=== PATIENT | female | born 1945 | race Caucasian/White ===

== ENCOUNTER → 2016-11-17 | Outpatient (CLI) | payer OTHER ==
--- NOTE | ~2016-11-17 | MY27 ---
[facility] A Service of [facility] & [facility] RADIOLOGY TEXT RESULTS PATIENT: GÉNESIS BAKER LOCATION: [facility] : 45 UNIT #: [id number] AGE: [address]: Garett Owen MD SEX: F ORDER DR: [id number] [facility] [address] [place], [place] [address] [id number] O MR#: [id number] #: [id number] NAME: GÉNESIS BAKER : 1945 SEX: F STUDY DATE/TIME: 11/17/2016 12:40 UNIT: [facility] ROOM: STUDY DESCRIPTION: MY MAYA SCREEN W/ CAD UNI LT Attending Physician: Garett Owen M.D. Referring Physician: Garett Owen M.D. Ordering Physician: Garett Owen M.D. Primary Care Physician: Johnny Barrett M.D. MEDICAL IMAGING REPORT This report is preliminary unless electronic signature is present EXAM Left digital screening mammogram with CAD COMPARISON 11/13/2015, 11/02/2014, 10/21/2013, 10/13/2012, 10/13/2011, 10/07/2010, 01/12/2008, 11/27/2005. INDICATIONS Breast cancer screening. 70-year-old female with history of right mastectomy for breast cancer at age 49. FINDINGS There are scattered fibroglandular densities. Since 2012, there has been gradual enlargement of an oval circumscribed isodense mass in the posterior third central left breast measuring 1.1 cm x 1 cm x 0.9 cm, previously demonstrated to represent simple cyst. This is therefore benign. There are no suspicious findings in the left breast. IMPRESSION 1. Post right mastectomy for breast cancer. 2. No mammographic evidence of malignancy in the left breast. Re-demonstration of an oval circumscribed mass shown to represent a cyst on sonography. Continued annual screening mammography and clinical breast exam are recommended. BIRADS: 2 Benign Finding. Patients over the age of 40 are entered into a reminder system with target due date for the next mammogram. A result letter will also be sent to the patient. [facility] A Service of [facility] & [facility] RADIOLOGY TEXT RESULTS PATIENT: GÉNESIS BAKER LOCATION: [facility] : 45 UNIT #: [id number] AGE: [address]: Garett Owen MD SEX: F ORDER DR: Dictated by... Roger Zuñiga M.D. THIS IS AN ELECTRONICALLY VERIFIED REPORT Roger Zuñiga M.D. at 11/25/2016 2:42 AM BLM/pcl TD: 11/17/2016 22:52 JOB #: [id number] MEDICAL IMAGING REPORT Page 1 of 1 COPY
== END | disposition home or self-care (01) ==
LOC: CMAM 11:28
DX: Z12.31 Encounter for screening mammogram for malignant neoplasm of breast (principal); Z80.3 Family history of malignant neoplasm of breast; Z90.11 Acquired absence of right breast and nipple
CPT/HCPCS: G0202